=== PATIENT | male | born 2000 | race Two or more races ===

== ENCOUNTER 2022-01-23 21:20 | Emergency (ER) | payer OTHER ==
[~2022-01-23] VITALS: Ht 175.3 cm; Wt 65.8 kg
[2022-01-23 21:58] VITALS: BP_SYST 109
--- NOTE | 2022-01-23 22:04 | NUR ---
PT presents with RLQ pain started tuesday. Denies N/V, reports diarrhea. Pt reports numbness in both legs. VSS.
[2022-01-23 22:14] LABS: BASOPHILS # (AUTO) 0.1 K/uL (0.0-0.2); EOSINOPHILS # (AUTO) 0.1 K/uL (0.0-0.4); MONOCYTES # (AUTO) 0.6 K/uL (0.0-1.0); MONOCYTES % (AUTO) 8.6 % (1.7-9.3); NEUTROPHILS # (AUTO) 5.1 K/uL (1.8-7.7)
[2022-01-23 22:17] LABS: CALCIUM 8.9 mg/dL (8.4-11.0); CREATININE 1.07 mg/dL (0.55-1.30); POTASSIUM 3.7 mmol/L (3.5-5.1)
[2022-01-23 22:21] LABS: BASOPHILS % (AUTO) 1.2 % (0.0-2.0); HEMATOCRIT 45.5 % (36-54); LYMPHOCYTES # (AUTO) 1.4 K/uL (1.0-5.5); LYMPHOCYTES % (AUTO) 18.9 % (20.5-51.5); MEAN CORPUSCULAR VOLUME 87 fL (79.0-98.0); NEUTROPHILS % (AUTO) 70.3 % (40.0-70.0); PLATELET COUNT (AUTO) 302 K/uL (130-430); RED BLOOD CELL COUNT(AUTO) 5.23 MIL/uL (4.2-6.2); RED CELL DISTRIBUTION WIDTH 12.6 % (9.0-15.0); WHITE BLOOD COUNT (AUTO) 7.2 K/uL (4.8-10.8)
[2022-01-23 22:23] LABS: ALBUMIN 4.2 g/dL (3.4-4.8)
[2022-01-24] MEDS ORDERED: OXYCODONE/ACETAMINOPHEN 5-325 TABLET PO ONE (00:15)
--- NOTE | 2022-01-24 00:16 | NUR ---
RECEIVED REPORT FROM TRIAGE NURSE. PRESENTS TO THE ER C/O RIGHT SIDE ABD PAIN X 1 WEEK. HE REPORTS PAIN IS INTERMITTENT AND SHARP. DENIES N/V. REPORTS DIARRHEA. DENIES FEVERS/CHILLS. ALSO DENIES URINARY SXS. CURRENTLY DENIES PAIN BEING REPRODUCIBLE UPON PALPATION. LYING SEMI FOWLERS ON STRETCHER RESTING WITH EYES OPEN. HE INFORMED TRIAGE NURSE THAT HE HAS BLE PARESTHESIA. OBSERVED PATIENT ABLE TO STAND AND PIVOT TO STRETCHER. 5/5 MUSCLE STRENGTH BLE. SENSATION INTACT TO PIN PRICK AND LIGHT TOUCH. BLE PULSES PALPABLE, +2. BED IN LOW POSITION, WHEELS LOCKED AND SR UP X 2 FOR SAFETY. WILL CONTINUE TO MONITOR.
--- NOTE | 2022-01-24 00:35 | NUR ---
TRANSPORTED VIA STRETCHER VIA TECH TO RADIOLOGY FOR CT. STABLE.
[2022-01-24] MEDS ORDERED: iohexoL 350 mgI/mL, 100 ML INFUS..BTL IV ONE (00:53)
--- NOTE | 2022-01-24 00:57 | NUR ---
RETURNS FROM RADIOLOGY. CT RESULTS PENDING. PLACED BACK ON COMMISSION FOR THE BLIND DIRECTOR. HE DENIES NEEDS/CONCERNS AT THIS TIME. BED IN LOW POSITION, WHEELS LOCKED AND SR UP X 2. WILL CONTINUE TO MONITOR.
[2022-01-24 02:05] VITALS: BP_SYST 104
--- NOTE | 2022-01-24 02:43 | NUR ---
UA OBTAINED AND TAKEN TO THE LAB.
[2022-01-24 04:26] LABS: BILIRUBIN,URINE NEGATIVE (NEGATIVE); BLOOD, URINE NEGATIVE (NEGATIVE); CLARITY/URINE CLEAR (CLEAR); COLOR,URINE YELLOW (YELLOW); GLUCOSE,URINE NEGATIVE (NEGATIVE); KETONES,URINE NEGATIVE (NEGATIVE); LEUKOCYTE ESTERASE ,URINE NEGATIVE (NEGATIVE); NITRITE, URINE NEGATIVE (NEGATIVE); PROTEIN URINE TRACE (NEGATIVE); UROBILINOGEN,URINE 0.2 (0.2-1.0)
[2022-01-24] MEDS ORDERED: HYDR-3917 PO (04:40)
== END 2022-01-24 05:43 | disposition home or self-care (01) ==
LOC: SED 21:20
DX: K52.9 Noninfective gastroenteritis and colitis, unspecified (principal)
CPT/HCPCS: 99285; 80053; 83690; 85025; 85651; 36415; 74018; 81003; 74177; 76376; Q9967